=== PATIENT | male | born 1950 | race Caucasian/White ===

== ENCOUNTER 2020-05-31 03:28 | Emergency (ER) | payer OTHER, MEDICARE ==
[~2020-05-31] VITALS: Ht 175.3 cm; Wt 100.0 kg
[2020-05-31] MEDS ORDERED: dexamethasone 4mg tablet PO ONE (04:25)
--- NOTE | 2020-05-31 04:33 | NUR ---
dr. [email or web address] at bedside assessing patient
[2020-05-31] MEDS ORDERED: METH-360 PO (04:41)
[2020-05-31] MEDS ORDERED: PRED20TA PO (04:41)
[2020-05-31] MEDS ORDERED: DIAZ-351 PO (04:41)
[2020-05-31] MEDS ORDERED: ketorolac tromethamine 15mg/ml inj. IM ONE (04:45)
[2020-05-31 05:16] VITALS: BP 18/103
== END 2020-05-31 05:19 | disposition home or self-care (01) ==
LOC: ER 03:29
DX: S39.012A Strain of muscle, fascia and tendon of lower back, initial encounter (principal); M54.42 Lumbago with sciatica, left side; G89.29 Other chronic pain; Z98.890 Other specified postprocedural states; Z79.899 Other long term (current) drug therapy; X58.XXXA Exposure to other specified factors, initial encounter; Y93.89 Activity, other specified; Y92.89 Other specified places as the place of occurrence of the external cause; Y99.8 Other external cause status
CPT/HCPCS: 96372; 99284; J1885